=== PATIENT | female | born 1980 | race Caucasian/White ===

== ENCOUNTER 2016-11-29 22:56 | Emergency (ER) | payer SELFPAY ==
[~2016-11-29] VITALS: Ht 170.2 cm; Wt 75.0 kg
[~2016-11-29 22:56] MED LIST: ACET325T14 PO; Hydrocodone Bit/Acetaminophen PO; LEVO500T33 PO; METR500T PO; POLY17PO5 NG
[2016-11-29 22:58] VITALS: BP 136/88
[2016-11-29] MEDS ORDERED: HYDROcodone/APAP 5/325 TABLET PO ONE (23:30)
[2016-11-29] MEDS ORDERED: HYDROcodone/APAP 5/325 TABLET ONE (23:36)
== END 2016-11-29 23:59 | disposition left against medical advice (07) ==
LOC: ED 23:44
DX: M79.661 Pain in right lower leg (principal); G89.11 Acute pain due to trauma; X50.9XXA Other and unspecified overexertion or strenuous movements or postures, initial encounter; Y93.89 Activity, other specified; Y99.8 Other external cause status; Y92.009 Unspecified place in unspecified non-institutional (private) residence as the place of occurrence of the external cause

== ENCOUNTER 2018-05-10 09:42 | Emergency (ER) | payer MEDICAID ==
[~2018-05-10] VITALS: Ht 167.6 cm; Wt 84.0 kg
[~2018-05-10 09:42] MED LIST changes: -LEVO500T33 PO; +LEVO500T47 PO
[2018-05-10] MEDS ORDERED: LIDOCAINE 1%-EPI 1:100K, 20ML INFIL ONE (13:00)
[2018-05-10] MEDS ORDERED: HYDROmorphone 2 MG/ML, 1ML IM ONE (13:00)
[2018-05-10] MEDS ORDERED: LIDOCAINE 1%-EPI 1:100K, 30ML ONE (13:05)
[2018-05-10] MEDS ORDERED: HYDROmorphone 2 MG/ML, 1ML ONE (13:06)
[2018-05-10 14:25] VITALS: BP 121/79
== END 2018-05-10 14:28 | disposition home or self-care (01) ==
LOC: ED 14:14
DX: T63.301A Toxic effect of unspecified spider venom, accidental (unintentional), initial encounter (principal); L03.314 Cellulitis of groin; F17.200 Nicotine dependence, unspecified, uncomplicated; Y99.8 Other external cause status; Y93.89 Activity, other specified; Y92.410 Unspecified street and highway as the place of occurrence of the external cause
CPT/HCPCS: 10060; 96372; 99283; J1170; J3490

== ENCOUNTER 2018-05-12 11:09 | Emergency (ER) | payer MEDICAID ==
[~2018-05-12] VITALS: Ht 167.6 cm; Wt 84.8 kg
[2018-05-12] MEDS ORDERED: KETOROLAC 30 MG/1 ML IM ONE (12:00)
[2018-05-12] MEDS ORDERED: KETOROLAC 30 MG/1 ML ONE (12:06)
[2018-05-12 12:24] LABS: BASOPHILS # (AUTO) 0.04 x10^3/uL (0-0.1); BASOPHILS % (AUTO) 1 % (0-1); EOSINOPHILS # (AUTO) 0.12 x10^3/uL (0-0.4); EOSINOPHILS % (AUTO) 2 % (1-7); LYMPHOCYTES # (AUTO) 2.99 x10^3/uL (1-3.4); LYMPHOCYTES % (AUTO) 39 % (22-44); MD NO; MEAN CORPUSCULAR HEMOGLOBIN 31.2 pg (27.0-34.8); MEAN CORPUSCULAR VOLUME 91.9 fL (80-100); MEAN PLATELET VOLUME 7.6 fL (7.4-10.4); MONOCYTES # (AUTO) 0.68 x10^3/uL (0.2-0.8); MONOCYTES % (AUTO) 9 % (2-9); NEUTROPHILS # (AUTO) 3.85 x10^3/uL (1.8-6.8); NEUTROPHILS % (AUTO) 50 % (42-75); PLATELET COUNT 395 x10^3/uL (130-400); RED BLOOD COUNT 4.02 x10^6/uL (3.82-5.3); RED CELL DISTRIBUTION WIDTH 12.8 % (9.6-15.2)
[2018-05-12 12:34] LABS: ALANINE AMINOTRANSFERASE 193 U/L (12-78); ANION GAP 9 mmol/L (5-15); CHLORIDE 107 mmol/L (98-107)
[2018-05-12 12:36] LABS: ALKALINE PHOSPHATASE 111 U/L (45-117); BILIRUBIN,TOTAL 0.4 mg/dL (0.2-1.0); CREATININE 0.62 mg/dL (0.55-1.02); TOTAL PROTEIN 7.7 g/dL (6.4-8.2)
[2018-05-12 13:26] VITALS: BP 119/72
== END 2018-05-12 13:28 | disposition home or self-care (01) ==
LOC: ED 12:06
DX: L02.214 Cutaneous abscess of groin (principal); L73.9 Follicular disorder, unspecified
CPT/HCPCS: 36415; 80053; 85025; 96372; 99284; J1885

== ENCOUNTER 2020-03-03 23:08 | Emergency (ER) | payer SELFPAY ==
[~2020-03-03] VITALS: Ht 170.2 cm; Wt 77.0 kg
[2020-03-03 23:18] VITALS: BP 141/68
[2020-03-03] MEDS ORDERED: HYDROcodone/APAP 5/325 TABLET ONE (23:49)
[2020-03-03] MEDS ORDERED: CEFAZOLIN 1,000 MG ONE (23:49)
[2020-03-04] MEDS ORDERED: HYDROcodone/APAP 5/325 TABLET PO ONE
[2020-03-04] MEDS ORDERED: CEFAZOLIN 1,000 MG IM ONE
[2020-03-04 00:01] LABS: BASOPHILS % (AUTO) 1 % (0-1); EOSINOPHILS # (AUTO) 0.15 x10^3/uL (0-0.4); EOSINOPHILS % (AUTO) 1 % (1-7); LYMPHOCYTES # (AUTO) 2.56 x10^3/uL (1-3.4); LYMPHOCYTES % (AUTO) 22 % (22-44); MD NO; MEAN CORPUSCULAR HEMOGLOBIN 29.6 pg (27.0-34.8); MEAN CORPUSCULAR HGB CONC 33.2 g/dL (32.4-35.8); MEAN CORPUSCULAR VOLUME 89.4 fL (80-100); MEAN PLATELET VOLUME 7.1 fL (7.4-10.4); MONOCYTES # (AUTO) 0.63 x10^3/uL (0.2-0.8); MONOCYTES % (AUTO) 5 % (2-9); NEUTROPHILS # (AUTO) 8.21 x10^3/uL (1.8-6.8); NEUTROPHILS % (AUTO) 71 % (42-75); PLATELET COUNT 417 x10^3/uL (130-400); RED BLOOD COUNT 3.87 x10^6/uL (3.82-5.3); RED CELL DISTRIBUTION WIDTH 13.5 % (9.6-15.2)
--- NOTE | 2020-03-04 00:06 | NUR ---
PT MEDICATED PER EMAR. CHEY HELD PT IS DROWSY AND FALLS ASLEEP THROUGHOUT CONVERSATION
[2020-03-04 00:12] LABS: ALBUMIN 3.5 g/dL (3.4-5.0); ANION GAP 7 mmol/L (5-15); CALCIUM 8.9 mg/dL (8.5-10.1); CHLORIDE 108 mmol/L (98-107); CREATININE 0.71 mg/dL (0.55-1.02)
--- NOTE | 2020-03-04 01:02 | NUR ---
NO S/S OF ABX RXN NOTED. DC EDUCATION PROVIDED, PT DEMONSTRATES UNDERSTANDING. PT AMBULATED STEADILY TO DC WITH RN AND FRIEND
== END 2020-03-04 01:25 | disposition home or self-care (01) ==
LOC: ED 03-04 00:50
DX: L03.317 Cellulitis of buttock (principal); Z88.0 Allergy status to penicillin; Z86.19 Personal history of other infectious and parasitic diseases; F17.200 Nicotine dependence, unspecified, uncomplicated
CPT/HCPCS: 36415; 80048; 82040; 85025; 96372; 99283; J0690

== ENCOUNTER 2020-04-05 04:56 | Emergency (ER) | payer SELFPAY ==
[~2020-04-05] VITALS: Ht 170.2 cm; Wt 97.0 kg
[2020-04-05 05:06] VITALS: BP 145/63
[2020-04-05] MEDS ORDERED: LIDOCAINE-MPF 1%, 5ML ONE (05:42)
--- NOTE | 2020-04-05 05:47 | NUR ---
Right 5th digit laceration that occured while using an eyebrow maryjane. UTD on tetanus.
[2020-04-05] MEDS ORDERED: LIDOCAINE 1%, 10ML INFIL ONE (06:00)
== END 2020-04-05 06:36 | disposition home or self-care (01) ==
LOC: ED 05:42
DX: S61.216A Laceration without foreign body of right little finger without damage to nail, initial encounter (principal); F17.200 Nicotine dependence, unspecified, uncomplicated; W26.8XXA Contact with other sharp object(s), not elsewhere classified, initial encounter; Y93.89 Activity, other specified; Y92.098 Other place in other non-institutional residence as the place of occurrence of the external cause; Y99.8 Other external cause status
CPT/HCPCS: 12041; 99284; J3490

== ENCOUNTER 2020-04-13 03:52 | Emergency (ER) | payer OTHER ==
[~2020-04-13] VITALS: Ht 170.2 cm; Wt 101.2 kg
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
[2020-04-13] MEDS ORDERED: LIDODERM 5% PATCH TD ONE ×2 (04:19→04:30)
[2020-04-13] MEDS ORDERED: ACETAMINOPHEN 500 MG TABLET ONE (04:19)
[2020-04-13] MEDS ORDERED: KETOROLAC 30 MG/1 ML ONE (04:19)
[2020-04-13] MEDS ORDERED: KETOROLAC 30 MG/1 ML IM ONE (04:30)
[2020-04-13] MEDS ORDERED: ACETAMINOPHEN 500 MG TABLET PO ONE (04:30)
[2020-04-13 05:25] VITALS: BP 114/40
--- NOTE | 2020-04-13 05:26 | NUR ---
DC PAPERWORK GIVEN, PT VERBALIZING UNDERSTANDING. AMBULATORY TO PRIVATE VEHICLE. ALL QUESTIONS ANSWERED.
== END 2020-04-13 05:35 | disposition home or self-care (01) ==
LOC: ED 05:17
DX: S39.012A Strain of muscle, fascia and tendon of lower back, initial encounter (principal); R07.9 Chest pain, unspecified; F17.200 Nicotine dependence, unspecified, uncomplicated; V43.62XA Car passenger injured in collision with other type car in traffic accident, initial encounter; Y93.89 Activity, other specified; Y92.488 Other paved roadways as the place of occurrence of the external cause; Y99.8 Other external cause status
CPT/HCPCS: 71045; 72110; 96372; 99284; J1885

== ENCOUNTER 2020-08-24 00:14 | Emergency (ER) | payer SELFPAY ==
[~2020-08-24] VITALS: Ht 170.2 cm; Wt 101.6 kg
[2020-08-24] MEDS ORDERED: NEOSPORIN OINT. PKT 1 PACKET ONE (00:58)
[2020-08-24 01:07] VITALS: BP 120/68
--- NOTE | 2020-08-24 01:08 | NUR ---
pt came in for wound on left leg, redness and abrasion noted. wound cleaned and dressed at this time. nad, pt resting on gurney, bed in [facility], rails engaged. call light on lap, tm. pt to be dc'd
--- NOTE | 2020-08-24 01:30 | NUR ---
Patient/Caregiver given discharge instructions and they have confirmed that they understand the instructions. Patient ambulatory with steady gait. nad, denies additional quesitons or needs, no personal belongings left in room after dc.
== END 2020-08-24 01:32 | disposition home or self-care (01) ==
LOC: ED 00:44
DX: L03.116 Cellulitis of left lower limb (principal); M79.662 Pain in left lower leg; F10.10 Alcohol abuse, uncomplicated; Z72.9 Problem related to lifestyle, unspecified; F17.210 Nicotine dependence, cigarettes, uncomplicated; Y90.0 Blood alcohol level of less than 20 mg/100 ml
CPT/HCPCS: 99283